=== PATIENT | male | born 1990 | race Caucasian/White ===

== ENCOUNTER 2018-05-20 19:27 | Emergency (ER) | payer SELFPAY ==
[~2018-05-20] VITALS: Ht 172.7 cm; Wt 65.0 kg
[2018-05-20 21:26] VITALS: BP 128/84
== END 2018-05-20 21:26 | disposition home or self-care (01) | DRG 728 ==
LOC: ED 19:27
DX: A54.09 Other gonococcal infection of lower genitourinary tract (principal); R30.0 Dysuria

== ENCOUNTER 2018-08-26 14:46 | Emergency (ER) | payer SELFPAY ==
[~2018-08-26] VITALS: Ht 172.7 cm; Wt 80.0 kg
[2018-08-26] MEDS ORDERED: ONDANSETRON4 MG PO (15:34)
[2018-08-26 15:55] VITALS: BP 120/77
== END 2018-08-26 15:55 | disposition home or self-care (01) | DRG 392 ==
LOC: ED 14:46
DX: K52.9 Noninfective gastroenteritis and colitis, unspecified (principal); F17.210 Nicotine dependence, cigarettes, uncomplicated

== ENCOUNTER 2018-09-16 16:30 | Emergency (ER) | payer SELFPAY ==
[~2018-09-16] VITALS: Ht 172.7 cm; Wt 75.0 kg
[~2018-09-16 16:30] MED LIST: ONDANSETRON4 MG PO
[2018-09-16] MEDS ORDERED: PREDNISONE50 MG PO (16:54)
[2018-09-16 17:02] VITALS: BP 123/77
[2018-09-16 17:12] LABS: BARBITURATES NEGATIVE (NEGATIVE); COCAINE NEGATIVE (NEGATIVE); METHADONE NEGATIVE (NEGATIVE); OXCYCODONE NEGATIVE (NEGATIVE); TETRAHYDROCANNABIONOL NEGATIVE (NEGATIVE); TRICYLIC ANTIDEPRESSANTS NEGATIVE (NEGATIVE)
== END 2018-09-16 17:19 | disposition home or self-care (01) | DRG 918 ==
LOC: ED 16:30
PROVIDERS: Family Medicine
DX: T63.481A Toxic effect of venom of other arthropod, accidental (unintentional), initial encounter (principal); F17.200 Nicotine dependence, unspecified, uncomplicated

== ENCOUNTER 2022-08-02 13:53 | Emergency (ER) | payer SELFPAY ==
[~2022-08-02] VITALS: Ht 172.7 cm; Wt 68.8 kg
[~2022-08-02 13:53] MED LIST changes: +PREDNISONE50 MG PO
[2022-08-02 14:33] LABS: URINE BLOOD DIPSTICK SMALL (NEGATIVE); URINE COLOR YELLOW; URINE GLUCOSE - DIPSTICK NEGATIVE (NEGATIVE); URINE KETONE 15 mg/dL (NEGATIVE); URINE LEUK ESTERASE TRACE (NEGATIVE); URINE PROTEIN - DIPSTICK 100 mg/dL (NEG-TRACE); URINE SPECIFIC GRAVITY >=1.030
[2022-08-02 14:35] LABS: URINE BILIRUBIN - DIPSTICK SEE COMMNET (NEGATIVE); URINE NITRITE - DIPSTICK NEGATIVE (Negative)
[2022-08-02 14:40] LABS: URINE BACTERIA FEW hpf; URINE WBC 20-50 WBC/hpf (0-5)
[2022-08-02] MEDS ORDERED: LEVOFLOXACIN500MG PO (15:09)
[2022-08-02 15:45] VITALS: BP 112/66
== END 2022-08-02 16:01 | disposition home or self-care (01) | DRG 728 ==
LOC: ED 13:53
PROVIDERS: Nurse Practitioner
DX: A64 Unspecified sexually transmitted disease (principal); F17.200 Nicotine dependence, unspecified, uncomplicated; Z86.19 Personal history of other infectious and parasitic diseases
CPT/HCPCS: J0561

== ENCOUNTER 2022-10-25 06:57 | Emergency (ER) | payer SELFPAY ==
[~2022-10-25] VITALS: Ht 172.7 cm; Wt 68.0 kg
[~2022-10-25 06:57] MED LIST changes: +LEVOFLOXACIN500MG PO
[2022-10-25 07:13] VITALS: BP 123/75
[2022-10-25 07:58] LABS: BASO% 0.8 % (0-3); EOS% 2.5 % (0-8); IMMATURE GRANULOCYTES 0.1 % (0.0-5.0); LYMPH% 23.6 % (15-41); MEAN CELL VOLUME 86.6 fL CALC (80.0-100.0); MEAN CORPUSCULAR HGB 28.8 pG CALC (26.0-32.0); MEAN CORPUSCULAR HGB CONC 33.3 g/dL CAL (32.0-36.0); MONO% 10.6 % (2-13); NEUT# 5.18 thou/uL (1.82-7.42); NEUT% 62.4 % (42-76); RED BLOOD COUNT 5.24 mill/uL (4.70-6.10); RED CELL DISTRI WIDTH 11.5 % (11.5-15.5)
[2022-10-25 08:03] LABS: ALBUMIN 4.5 g/dL (3.2-5.0); ALKALINE PHOSPHATASE 94 u/l (38-126); ANION GAP 11 (6-22 (CALC)); BILIRUBIN, TOTAL 0.7 mg/dL (0.2-1.3); BUN 15 mg/dL (9-20); BUN/CREATININE RATIO 14 (12-20 (CALC)); CARBON DIOXIDE 29 mmol/l (22-30); CHLORIDE 101 mmol/l (95-108); GFR FOR AFR.AMER. > 60 ML/MIN (>=60 (CALC)); GFR OTHER RACES > 60 ML/MIN (>=60 (CALC)); HEMATOCRIT 45.4 % (39.0-50.0); HEMOGLOBIN 15.1 g/dl (14.0-18.0); LIPASE 28 u/l (23-300); POTASSIUM 3.6 mmol/l (3.5-5.1); SGOT/AST 30 u/l (17-59); SODIUM 139 mmol/l (137-146); TOTAL PROTEIN 7.8 g/dL (6.3-8.2)
[2022-10-25 08:08] LABS: ETHYL ALCOHOL 0 mg/dl (0-30)
[2022-10-25] MEDS ORDERED: CEPHALEXIN500 MG PO (08:33)
[2022-10-25 08:35] VITALS: BP 123/75
== END 2022-10-25 08:30 | disposition left against medical advice (07) | DRG 556 ==
LOC: ED 06:57
PROVIDERS: Family Medicine
DX: M25.532 Pain in left wrist (principal); M25.531 Pain in right wrist; M79.642 Pain in left hand; M79.641 Pain in right hand; M54.50 Low back pain, unspecified; S30.810A Abrasion of lower back and pelvis, initial encounter; F17.200 Nicotine dependence, unspecified, uncomplicated; V86.55XA Driver of 3- or 4- wheeled all-terrain vehicle (ATV) injured in nontraffic accident, initial encounter; Z53.29 Procedure and treatment not carried out because of patient's decision for other reasons